=== PATIENT | female | born 1960 | race Caucasian/White ===

== ENCOUNTER 2020-11-07 07:22 | Outpatient (REF) | payer BC, SELFPAY ==
--- NOTE | ~2020-11-07 | XR_ITS ---
EXAMINATION: XR CHEST CLINICAL INFORMATION: Cough COMPARISON: 11/23/2018 TECHNIQUE: 2 views of the chest were obtained. FINDINGS: The lungs are well expanded. There is no focal consolidation, edema, or effusion. No pneumothorax. The cardiomediastinal silhouette is within normal limits. No acute osseous abnormality. XR/XR chest 2V IMPRESSION: Clear lungs.
== END 2020-11-07 07:23 | disposition home or self-care (01) ==
LOC: HO.XRAY 07:22
PROVIDERS: PCP Internal Medicine; Visit Provider Nurse Practitioner Family
DX: R05 Cough (principal)
CPT/HCPCS: 71046

== ENCOUNTER 2021-07-05 14:19 | Outpatient (REF) | payer BC, SELFPAY ==
--- NOTE | ~2021-07-05 | CT_ITS ---
EXAMINATION: CT CHEST SCREENING CLINICAL INFORMATION: Nicotine dependence. COMPARISON: Chest x-ray 11/07/2020. TECHNIQUE: Multidetector volumetric CT imaging of the chest is performed without contrast using low dose technique. Additional 2D coronal and sagittal reformatted images and axial 3D maximum intensity projection (MIP) images are generated on the CT workstation. This CT examination was performed using dose optimization techniques as appropriate, variously including the following: *Automated exposure control *Adjustment of mA and/or kV according to patient size (this includes techniques or standardized protocols for targeted exams where dose is matched to indication/reason for exam; i.e. extremities or head) *Use of iterative reconstruction technique DLP: 47 mGy-cm FINDINGS: LUNGS: Previously visualized tumor nodule right lung apex medially is not seen at this time. There is a 2 mm noncalcified nodule right upper lobe anteriorly image 164/6. A 2 mm nodule adjacent to the minor fissure in the right middle lobe is stable. No acute pneumonic process seen. MEDIASTINUM: The thyroid lobes are symmetrical and normal. The central trachea and the bronchi are widely patent. The heart size and the great vessels are normal caliber. No abnormal size mediastinal or hilar lymph nodes seen. PLEURA: There is no pleural effusion or thickening. AXILLA: No lymphadenopathy. UPPER ABDOMEN: Visualized liver, spleen, pancreas and bilateral adrenal glands are unremarkable. OSSEOUS STRUCTURES: Unremarkable CT/CT lung screening IMPRESSION: Stable small right pulmonary nodules. The right apical nodule is not seen or may be smaller. ASSESSMENT: Lung-RADS category 2: Benign. RECOMMENDATION: Low-dose annual CT chest.
== END 2021-07-05 14:20 | disposition home or self-care (01) ==
LOC: HO.CT 14:19
PROVIDERS: PCP Registered Nurse; Visit Provider Physician Assistant Medical
DX: Z12.2 Encounter for screening for malignant neoplasm of respiratory organs (principal); F17.210 Nicotine dependence, cigarettes, uncomplicated
CPT/HCPCS: 71271

== ENCOUNTER 2021-07-12 07:27 | Outpatient (REF) | payer BC, SELFPAY ==
--- NOTE | ~2021-07-12 | MM_ITS ---
EXAMINATION: MM SCREENING DIGITAL BREAST TOMOSYNTHESIS, BILATERAL CLINICAL INFORMATION: Screening. Asymptomatic. The lifetime risk of breast cancer based on the Tyrer-Cuzick Model is 7%. COMPARISON: Mammography: 05/13/2019, 05/12/2018, 04/15/2017, 10/08/2016 TECHNIQUE: Digital breast tomosynthesis is performed in both the craniocaudal and mediolateral oblique views along with computer-aided detection (CAD). Synthesized 2D images are generated from the tomosynthesis. FINDINGS: There are scattered areas of fibroglandular density (ACR BI-RADS breast composition Category b). There are no significant masses, abnormal calcifications, or other abnormalities. Parenchymal pattern is similar to prior studies. No developing density. The axilla and skin contours are unremarkable. MM/MM tomosynthesis screening BI IMPRESSION: No mammographic evidence of malignancy. ASSESSMENT: BI-RADS 1: Negative RECOMMENDATION: Routine annual mammography screening. This patient's information was entered into a reminder system with a target due date for their next mammogram.
== END 2021-07-12 07:28 | disposition home or self-care (01) ==
LOC: HO.MAMMO 07:27
PROVIDERS: Visit Provider Registered Nurse
DX: Z12.31 Encounter for screening mammogram for malignant neoplasm of breast (principal)
CPT/HCPCS: 77063; 77067

== ENCOUNTER 2022-07-21 07:20 | Outpatient (REF) | payer BC, SELFPAY ==
--- NOTE | ~2022-07-21 | MM_ITS ---
EXAMINATION: MM SCREENING DIGITAL BREAST TOMOSYNTHESIS, BILATERAL CLINICAL INFORMATION: Screening. Asymptomatic. The lifetime risk of breast cancer based on the Tyrer-Cuzick Model is 7%. COMPARISON: Mammography: July 12, 2021 and studies dating back to April 04, 2015 TECHNIQUE: Digital breast tomosynthesis is performed in both the craniocaudal and mediolateral oblique views along with computer-aided detection (CAD). Synthesized 2D images are generated from the tomosynthesis. FINDINGS: There are scattered areas of fibroglandular density (ACR BI-RADS breast composition Category b). There are no significant masses, abnormal calcifications, or other abnormalities. MM/MM tomosynthesis screening BI IMPRESSION: No significant changes from prior exam. ASSESSMENT: BI-RADS 1: Negative RECOMMENDATION: Routine annual mammography screening. This patient's information was entered into a reminder system with a target due date for their next mammogram.
== END 2022-07-21 07:21 | disposition home or self-care (01) ==
LOC: HO.MAMMO 07:20
PROVIDERS: PCP Registered Nurse; Visit Provider Registered Nurse
DX: Z12.31 Encounter for screening mammogram for malignant neoplasm of breast (principal)
CPT/HCPCS: 77063; 77067

== ENCOUNTER 2022-08-12 12:53 | Outpatient (REF) | payer BC, SELFPAY ==
--- NOTE | ~2022-08-12 | CT_ITS ---
EXAMINATION: CT CHEST SCREENING CLINICAL INFORMATION: Current smoker. 50 pack year history. COMPARISON: Previous chest CT most recent June 2021 TECHNIQUE: Multidetector volumetric CT imaging of the chest is performed without contrast using low dose technique. Additional 2D coronal and sagittal reformatted images and axial 3D maximum intensity projection (MIP) images are generated on the CT workstation. This CT examination was performed using dose optimization techniques as appropriate, variously including the following: *Automated exposure control *Adjustment of mA and/or kV according to patient size (this includes techniques or standardized protocols for targeted exams where dose is matched to indication/reason for exam; i.e. extremities or head) *Use of iterative reconstruction technique DLP: 145 mGy-cm FINDINGS: LUNGS: There is evidence of emphysema. There is scattered areas of increased peribronchial attenuation or small non-2 mm nodules greatest in the upper lobes probably representing respiratory bronchiolitis related to smoking. There is a new lobulated slightly spiculated nodule/mass. This measures maximum 2.9 x 3.1 cm in transverse and AP dimension axial image 121 series 5 and 2.6 cm in longitudinal dimension sagittal reconstructed image 27. There is a 2 mm left upper lobe nodule axial image 1:15 series 5 that is stable. There is a 2 mm calcified right upper lobe nodule axial image 184 series 5 that is stable. No endobronchial or endotracheal lesion. MEDIASTINUM: There is a left AP window lymph node that is normal in size but new from earlier exam. This measures 7 mm in short axis axial image 15 series 3. There is a new enlarged left AP window lymph node that measures 1.3 cm in short axis axial image 20 series 3. There are multiple smaller mediastinal lymph nodes that do not appear appreciably changed. There is suggestion of a new left hilar lymph node measuring 2 cm in short axis axial image 22 series 3. Normal heart size. No pericardial effusion. Question mild wall thickening of the distal thoracic esophagus. Normal caliber thoracic aorta. CORONARY ARTERY CALCIFICATION: None visualized on this study. PLEURA: There is no pleural effusion. No pleural mass or thickening. AXILLA: Small bilateral axillary lymph nodes. No enlarged lymph nodes. UPPER ABDOMEN: Unremarkable OSSEOUS STRUCTURES: Unremarkable. CT/CT lung screening IMPRESSION: 3 cm lobulated slightly spiculated nodule/mass in the left upper lobe strongly suspicious for neoplasm. Enlarged mediastinal and left hilar lymph nodes. Emphysema. Question mild wall thickening of the distal thoracic esophagus ASSESSMENT: Lung-RADS category 4X: Suspicious RECOMMENDATION: PET/CT or tissue sampling recommended. 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
== END 2022-08-12 12:54 | disposition home or self-care (01) ==
LOC: HO.CT 12:53
PROVIDERS: Visit Provider Physician Assistant Medical
DX: Z12.2 Encounter for screening for malignant neoplasm of respiratory organs (principal); F17.210 Nicotine dependence, cigarettes, uncomplicated
CPT/HCPCS: 71271

== ENCOUNTER 2022-08-26 08:16 | Outpatient (REF) | payer BC, SELFPAY ==
--- NOTE | ~2022-08-26 | PE_ITS ---
EXAMINATION: Fluorine-18 FDG PET/CT Scan CLINICAL INDICATION: Initial treatment management. Pulmonary nodule. PROCEDURE: 52 minutes following the intravenous administration of 14.5 mCi of fluorine 18 FDG, images from the base of the skull to the mid thighs were obtained using a combined PET/CT scanner with CT scan based attenuation correction. No oral contrast was administered. No intravenous contrast was administered. Transverse, coronal, sagittal, and volume reconstruction projections were obtained. The patient's blood glucose as determined by a finger stick, was 96 mg/dl immediately prior to injection. Total CT exam dose-length product 462.80 mGy-cm * These CT images were obtained using dose optimization techniques as appropriate, variously including the following: Automated exposure control * Adjustment of mA and/or kV according to patient size (this includes techniques or standardized protocols for targeted exams where dose is matched to indication/reason for exam; i.e. extremities or head) * Use of iterative reconstruction technique COMPARISON: No previous PET/CT scan is available for comparison. CT scan of the chest dated 08/12/2022 is available for comparison. FINDINGS: (Slice numbers described in this report are numbered superiorly to inferiorly with slice #1 in the head) NECK AND VISUALIZED HEAD: No foci of abnormal FDG activity are noted. The distribution of FDG activity is physiological. There is no cervical lymphadenopathy. THORAX: There is an intensely FDG avid left upper lobe pulmonary nodule showing SUVmax 11.5, slice 73/267. This measures 3.1 x 2.4 cm in largest transverse dimensions on the CT images and approximately 2.7 cm cephalocaudad. It appears unchanged in appearance from the recent 08/12/[address] scan. An additional intensely FDG avid focus is present in the left hilar region and extends into the proximal peribronchial region of the left upper lobe, showing SUVmax 10.5, slice 87/267. 2 additional small subcentimeter nodules visualized on the 08/12/2022 CT scan are just barely visible, is 0.2 cm nodule anteriorly in the left upper lobe, slice 200/608, and a 0.2 cm anterolateral nodule in the right upper lobe, slice 226/608. Both of these are much too small to be characterized on the FDG PET images. No additional pulmonary nodules are visualized. There are no additional foci of abnormal FDG activity in the lung parenchyma. There is no pleural or pericardial fluid or pneumothorax. In the mediastinum there is an intensely FDG avid AP window lymph node showing SUVmax 6.9, slice 77/267 measuring 2.5 x 1.3 cm in largest transverse dimensions and more superiorly there is a subcentimeter FDG avid periaortic lymph node abutting the lateral aspect of the aortic arch showing SUVmax 4.2, slice 74/267. There are no additional foci of abnormal FDG activity present in the chest. ABDOMEN AND PELVIS: There are no foci of abnormal FDG activity present in the abdomen or pelvis. There is mild FDG activity throughout the gastrointestinal tract without a suspicious focal component, likely physiological. There is diverticulosis without evidence of diverticulitis. The hollow viscera are otherwise unremarkable. The liver, gallbladder, spleen, kidneys, adrenal glands, and pancreas are unremarkable. The pancreas is unremarkable. There is no retroperitoneal, mesenteric, pelvic or inguinal lymphadenopathy. The pelvic organs are unremarkable. MUSCULOSKELETAL: There are no foci of abnormal FDG activity in the osseous structures. There are minimal degenerative changes in the spine. There are no suspicious sclerotic or lytic lesions visualized. VASCULAR: A few scattered vascular calcifications are present. PET/PET CT fusion skull to thigh IMPRESSION: 1. Intensely FDG avid left upper lobe pulmonary mass is most likely malignant. Biopsy is recommended, if clinically indicated. 2. Intensely FDG avid left upper lobe hilar and proximal left peribronchial lymphadenopathy and FDG avid mediastinal lymphadenopathy are likely due to metastases. 3. Additional stable small subcentimeter pulmonary nodules are visualized as described above and these are too small to be characterized on the FDG PET images. 4. No additional abnormalities suspicious for metastatic or other malignant lesions are noted.
== END 2022-08-26 08:17 | disposition home or self-care (01) ==
LOC: HO.PET 08:16
PROVIDERS: Visit Provider Surgery
DX: Z13.89 Encounter for screening for other disorder (principal)

== ENCOUNTER 2022-08-27 14:57 | Outpatient (REF) | payer BC, SELFPAY ==
--- NOTE | 2022-08-27 13:56 | PFT_ITS ---
FLOWS: FEV1 65% of predicted at 1.44 L. FVC 80% of predicted at 2.29 L. FEV1 to FVC ratio of 0.63. No bronchodilator response. LUNG VOLUMES: Total lung capacity 88% of predicted at 4.05 L. Residual volume 95% of predicted at 1.83 L. Slow vital capacity 82% of predicted at 2.22 L. Expiratory reserve volume 64% of predicted at 0.44 L. Diffusion capacity is normal. IMPRESSION: Moderate obstructive ventilatory defect with no bronchodilator response. MD ANA Collier/MODL / [id number]
== END 2022-08-27 14:58 | disposition home or self-care (01) ==
LOC: HO.RESP 14:57
PROVIDERS: Visit Provider Surgery
DX: R91.1 Solitary pulmonary nodule (principal)
CPT/HCPCS: 94060; 94727; 94729

== ENCOUNTER 2023-11-24 13:41 | Outpatient (REF) | payer BC, SELFPAY | END 2023-11-24 13:42 | disposition home or self-care (01) | LOC: HO.MAMMO 13:41 | PROVIDERS: PCP Registered Nurse; Visit Provider Registered Nurse | DX: Z12.31 Encounter for screening mammogram for malignant neoplasm of breast (principal) | CPT/HCPCS: 77063; 77067 ==

== ENCOUNTER → 2023-11-24 13:45 | Outpatient (BNV) | payer BC, SELFPAY | PROVIDERS: PCP Registered Nurse; Visit Provider Radiology Diagnostic Radiology | DX: Z12.31 Encounter for screening mammogram for malignant neoplasm of breast (principal) | CPT/HCPCS: 77063; 77067 ==